=== PATIENT | female | born 1950 | race Caucasian/White ===

== ENCOUNTER → 2021-11-15 | Outpatient (CLI) | payer SELFPAY, OTHER ==
--- NOTE | 2021-11-15 08:30 | CT_ITS ---
INDICATION: ANEURYSM OF SUPERIOR MASENTERIC ARTERY EXAMINATION: CTA abdomen and pelvis - TECHNIQUE: Routine abdominal CT angiogram protocol was performed with IV contrast. MIP images provided. A radiation dose optimization technique was used for this scan. IV Contrast dosage and agent: Radiation dose DLP mGy / cm. COMPARISON: None. FINDINGS: Lung bases: Normal. Liver: Fatty liver. Gallbladder: Status post cholecystectomy. Remainder of the biliary system normal. Spleen: Normal. Adrenal gland: Normal. Kidneys: Normal. No hydronephrosis or stone formation. Pancreas:Normal. Bowel gas pattern: Nonobstructive. Appendix: Normal. Free air: None. Free fluid: None. Pelvis: Atrophic uterus versus hysterectomy. Bone survey: No aggressive bony lesions. No acute fractures. Adenopathy: No significant pathologic adenopathy detected. Other: Atrophic uterus versus hysterectomy. Vascular: The aorta is of normal caliber without evidence of aneurysm. Celiac axis no evidence of hemodynamically significant stenosis. The splenic artery and hepatic artery are normal in appearance. 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 Less likely this aneurysm arises from the hepatic artery. This is partially calcified. This measures 1.5 cm transverse by 1.77 cm AP by 2.2 cm in craniocaudal dimension. Anderson images are seen on series 602 image 83 and series 2 image 37. Superior mesenteric artery no evidence of hemodynamically significant stenosis. Left renal artery no evidence of hemodynamically significant stenosis. Right renal artery no evidence of hemodynamically significant stenosis. The common iliac arteries, internal iliac arteries and external iliac arteries as well as common femoral arteries demonstrate no evidence of hemodynamically significant stenosis. 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 Nonvascular findings: Fatty liver, cholecystectomy, atrophic uterus versus hysterectomy. Electronically Signed: Daren Heard MD, DEANDRA at 9:30 EDT ,
[2021-11-15 09:00] LABS: CREATININE FINGERSTICK < 0.9 mg/dL (0.55-1.02); EGFR FINGERSTICK > 60.0000 mL/min (>60)
== END | disposition home or self-care (01) ==
LOC: CT 08:27
PROVIDERS: PCP Family Medicine; Referring Provider Surgery Vascular Surgery; Visit Provider Surgery Vascular Surgery
DX: I72.8 Aneurysm of other specified arteries (principal); I48.91 Unspecified atrial fibrillation
CPT/HCPCS: 74174; Q9967

== ENCOUNTER → 2023-06-29 | Outpatient (CLI) | payer SELFPAY, OTHER ==
--- NOTE | 2023-06-29 07:07 | CT_ITS ---
STUDY: CTA ABDOMEN AND PELVIS WITH CONTRAST REASON FOR EXAM: Female, 73 years old. Aneurysm of other specified arteries. Patient has a history of a superior mesenteric artery aneurysm. RADIATION DOSAGE (If Supplied By Facility): CTDIvol = ( 26.72 ) mGy, DLP = ( 824.25 ) mGycm TECHNIQUE: Transaxial images were obtained from the dome of the diaphragm to the symphysis pubis without oral contrast. IV 100mL Isovue-[id number] was administered. Sagittal and coronal images were reconstructed. Individualized dose optimization techniques were used for this CT. COMPARISON: Comparison is made with prior study dated November 15, 2021. FINDINGS: The visualized lung bases are unremarkable. The visualized portions of the heart are within normal limits. There is decreased attenuation of the liver consistent with steatosis. There are surgical clips in the gallbladder fossa consistent with a prior cholecystectomy. Normal spleen. Normal pancreas. Normal bilateral adrenal glands. Normal right kidney. Normal left kidney. Normal visualized stomach. Normal small intestine. A large amount of fecal material is seen in the distal colon. The appendix is visualized and appears normal. There is minimal atherosclerotic calcification of the abdominal aorta. Stable aneurysmal dilatation with rim-like calcification along the medial aspect of the proximal portion of the superior mesenteric artery as it enters the region of the right hepatic artery. This may represent aberrant origin of the right hepatic artery. Normal inferior vena cava. Normal retroperitoneum. Normal urinary bladder. There is absence of the uterus consistent with a prior hysterectomy. Normal abdominal wall. There is heterogeneous appearance of the lumbar vertebrae. Correlation with the bone scan recommended. CT/CTA Abd/Pelvis W/WO Contrast IMPRESSION: Stable examination. Heterogeneous appearance of the lumbar vertebrae. Correlation with a bone scan is recommended. Electronically Signed: Darrel Roth MD at 9:07 EDT ,
[2023-06-29 07:40] LABS: CREATININE FINGERSTICK < 1.0 mg/dL (0.55-1.02); EGFR FINGERSTICK > 60.0000 mL/min (>60)
== END | disposition home or self-care (01) ==
LOC: CT 07:06
PROVIDERS: PCP Family Medicine; Referring Provider Surgery Vascular Surgery; Visit Provider Surgery Vascular Surgery
DX: I72.8 Aneurysm of other specified arteries (principal)
CPT/HCPCS: 74174; Q9967

== ENCOUNTER → 2023-12-19 | Outpatient (CLI) | payer SELFPAY, OTHER ==
--- NOTE | 2023-12-19 12:33 | MRI_ITS ---
STUDY: MRI LEFT KNEE REASON FOR EXAM: Female, 73 years old. Left knee pain after stepping down from threshold. TECHNIQUE: Standardized fat and water weighted pulse sequences were obtained in all 3 orthogonal planes. COMPARISON: None. FINDINGS: There is a partial radial tear of the posterior horn of the medial meniscus (sagittal PD series 4 images 14-19). There is degenerative arthrosis of the medial femorotibial compartment with joint space narrowing, marginal osteophyte formation, moderate grade chondromalacia, and subchondral marrow edema. There is a curvilinear subchondral stress fracture of the mid weightbearing surface of the medial femoral condyle. There is a mild grade I MCL sprain with periligamentous edema (coronal T2 series 7 images 14-17). Normal distal semimembranosus, gracilis and semitendinosus tendons. Normal lateral meniscus. Normal hyaline cartilage of the lateral femorotibial compartment. There is mild osteoarthritic spur formation of the lateral knee compartment. Normal proximal tibiofibular articulation. Normal lateral collateral (fibular) ligament. Normal popliteus tendon. Normal biceps femoris tendon. Normal anterior cruciate ligament (ACL). Normal posterior cruciate ligament (PCL). There is low to moderate grade patellofemoral chondromalacia. Congruent patellofemoral articulation. Normal medial and lateral patellar retinaculum. Normal quadriceps tendon. Normal patellar tendon. Normal Hoffa''s fat pad. There is a small to moderate joint effusion. There is a small popliteal cyst. There is mild subcutaneous soft tissue edema along the anterior aspect of the knee. MRI/Lower Ext Joint Only (Routine) IMPRESSION: Partial radial tear of the posterior horn of the medial meniscus. Tricompartment degenerative arthrosis, most severe in the medial femorotibial compartment. Curvilinear subchondral stress fracture of the mid weightbearing surface of the medial femoral condyle. Mild grade I MCL sprain. Small to moderate joint effusion, with a small popliteal cyst. Mild subcutaneous soft tissue edema along the anterior aspect of the knee. Electronically Signed: Juan Daniel Menjivar MD at 14:32 EDT ,
[2023-12-19 13:27] VITALS: BP 152/69; PULSE 93; RESP 18; O2SAT 96
[2023-12-19 13:40] VITALS: BP 168/79; PULSE 91; RESP 18; O2SAT 96
[2023-12-19 13:51] VITALS: BP 156/65; PULSE 92; RESP 18; O2SAT 95
[2023-12-19 14:02] VITALS: BP 156/67; PULSE 88; RESP 18; O2SAT 97
== END | disposition home or self-care (01) ==
LOC: MRI 12:25
PROVIDERS: PCP Family Medicine; Referring Provider Orthopaedic Surgery; Visit Provider Orthopaedic Surgery
DX: M25.562 Pain in left knee (principal)
CPT/HCPCS: 73721